=== PATIENT | male | born 1990 | race Caucasian/White ===

== ENCOUNTER 2017-02-26 00:39 | Emergency (ER) | payer BC ==
[~2017-02-26] VITALS: Ht 170.2 cm; Wt 96.5 kg
[~2017-02-26 00:39] MED LIST: ALBU8.5H3 INH; BEN25 PO; CEPH-443 PO; CETI10CA PO; GUAI118L94 PO; IBUP-1542 PO; IBUP800T25 PO
[2017-02-26 00:42] VITALS: Ht 170.2 cm; Wt 96.5 kg
[2017-02-26] MEDS ORDERED: ALBUTEROL 0.083% (NEB) 2.5 MG/3 ML AMP NEB STA (03:24)
[2017-02-26] MEDS ORDERED: DEXAMETHASONE 10 MG/ML 1 ML INJ IM STA (03:24)
[2017-02-26] MEDS ORDERED: IPRATROPIUM (NEB) 0.5 MG/2.5 ML AMP NEB STA (03:24)
--- NOTE | 2017-02-26 04:33 | ERD ---
ER Documentation Chief Complaint Date/Time DATE: 02/26/17 TIME: 04:27 Chief Complaint cough w/wheezing, hx asthma HPI This 26-year-old male patient presents to emergency department for exacerbation of asthma. States he has asthma and is been out of his albuterol inhaler for 3 months. Patient denies any use of maintenance medication. Denies any known trigger other than the heat during the day. Patient denies shortness of breath , chest pain, dizziness, or palpitations. ROS All systems reviewed and are negative except as per history of present illness. Medications Home Meds Active Scripts Cephalexin* (Keflex*) 500 Mg Capsule, 500 MG PO QID for 10 Days, CAP Prov:NICKY DIAZ NP 02/05/16 Diphenhydramine Hcl* (Benadryl*) 25 Mg Cap, 25 MG PO Q6 Y for ITCHING/RASH, #30 TAB Prov:NICKY DIAZ NP 02/05/16 Ibuprofen* (Motrin*) 600 Mg Tab, 600 MG PO Q6H Y for PAIN AND OR ELEVATED TEMP, #30 TAB Prov:NICKY DIAZ NP 02/05/16 Ibuprofen* (Motrin*) 600 Mg Tab, 600 MG PO Q8, #30 TAB 0 Refills Prov:MARY LOU VALENTINO PA-C 11/05/15 Cetirizine Hcl* (Zyrtec*) 10 Mg Capsule, 10 MG PO DAILY, #30 TAB.CHEW Prov:NICKY DIAZ NP 07/23/15 Albuterol Sulfate* (Proair HFA*) 8.5 Gm Hfa.aer.ad, 2 PUFF INH Q4H Y for WHEEZING AND SOB, #1 INHALER Prov:NICKY DIAZ NP 07/23/15 Ibuprofen* (Motrin*) 600 Mg Tab, 600 MG PO Q6H Y for PAIN AND OR ELEVATED TEMP, #30 TAB Prov:NICKY DIAZ NP 07/23/15 Guaifenesin-Codeine Phosphate* (Guaifenesin* with Codeine Liq) 120 Ml Liquid, 5 ML PO Q4H for COUGH, #60 ML Prov:NICKY DIAZ NP 07/23/15 Ibuprofen* (Motrin*) 800 Mg Tab, 800 MG PO Q6H Y for PAIN AND OR ELEVATED TEMP, #30 TAB Prov:ANDRÉS TAMEZ Casandra RADIOLOGY TRANSPORTER 02/28/15 Allergies Allergies: Coded Allergies: No Known Allergy (Unverified , 08/02/14) PMhx/Soc Medical and Surgical Hx: pt denies Surgical Hx History of Surgery: Yes (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) Anesthesia Reaction: No Hx Neurological Disorder: No Hx Respiratory Disorders: Yes (asthma) Hx Cardiac Disorders: No Hx Psychiatric Problems: No Hx Miscellaneous Medical Probl: No Hx Alcohol Use: Yes (socially) Hx Substance Use: Yes (quit marijuana) Hx Tobacco Use: No Smoking Status: Never smoker Physical Exam Vitals Vital Signs Date Time Temp Pulse Resp B/P Pulse Ox O2 Delivery O2 Flow Rate FiO2 02/26/17 03:45 66 24 96 21 02/26/17 00:42 98.2 68 20 144/83 98 Vitals stable, triage notes reviewed Physical Exam Const: Well-nourished well-appearing well-hydrated no acute distress Head: Eyes: ENT: Normal External Ears, Nose and Mouth. Neck: Resp: Respirations even and unlabored, expiratory wheeze diminished bases no rhonchi Cardio: Abd: Skin: Back: Ext: Neur: Awake and alert Psych: Normal Mood and Affect Results 24 hrs Current Medications Medications (Trade) Dose Ordered Sig/Padmaja Route PRN Reason Start Time Stop Time Status Last Admin Dose Admin Albuterol (Proventil 0.083% (Neb)) 5 mg ONCE STAT NEB 02/26/17 03:24 02/26/17 03:28 DC 02/26/17 03:48 Ipratropium [place] (Atrovent 0.02% (Neb)) 0.5 mg ONCE STAT NEB 02/26/17 03:24 02/26/17 03:28 DC 02/26/17 03:47 Dexamethasone (Decadron) 5 mg ONCE STAT IM 02/26/17 03:24 02/26/17 03:28 DC Procedures/MDM This 26-year-old male patient presents to emergency department for exacerbation of asthma. I have little suspicion of pneumonia, bronchitis, or upper respiratory infection. Emergency room course includes 5 mg of intramuscular Decadron, and hand-held nebulized albuterol and Atrovent patient reassessed after interventions with improvement of wheezing patient reports improved work of breathing. Plan to discharge patient home with albuterol MDI 2 puffs every 4 hours as needed no refills will be provided patient must follow-up with primary care physician for full evaluation of asthma including pulmonary function tests. Patient is stable with no new complaints during ER course, clinically there is no current evidence to suggest any other emergent condition appearing to require further evaluation or hospitalization. I feel the patient is stable for discharge at this time. I have discussed results, examination findings, the treatment plan with the patient and family present prior to discharge. Indications for emergent reevaluation, side effects of medication were also discussed. All questions were answered. Patient verbalizes understanding and agrees with plan of care. Departure Diagnosis: Primary Impression: Asthma exacerbation Condition: Good Patient Instructions: [facility] Additional Instructions: Thank you for for coming to [facility] for your care today. Please ask your nurse or provider if you have questions about your care today and do not leave until all your questions have been answered. Please use any medications given as directed and follow-up with your doctor (or the doctor you were referred to) in the next 2-3 days. If you do not have a primary care doctor you may follow up at the [facility] (listed below). You may also use motrin and tylenol as needed for fever and/or pain unless instructed otherwise by your provider or nurse. Indications for more urgent follow-up have been discussed, but you may return to the Emergency Department at ANY time for any worrisome or worsening symptoms. If you have abdominal pain, please know that no test or exam you received is perfect and you should follow up within 8 hours for continued pain. If you had any imaging studies today, such as an X-Ray or CT Scan, these studies will be reviewed later by a radiologist. You will be called if there are important findings that were not identified today, so make sure the contact information you provided at registration is correct. If you received any narcotic pain control medicine today, such as Vicodin, Morphine or Dilaudid, your coordination and judgment may be affected for a number of hours. Please do not drive or operate heavy machinery, and you may want someone to assist you at home. If you were given a prescription for narcotic medication, be aware that it is very addictive- use sparingly and only if necessary. DULCE QUICK Feb 26, 2017 04:33
[2017-02-26] MEDS ORDERED: ALBU8.5H3 INH (04:34)
[2017-02-26 05:09] VITALS: BP 127/67; PULSE 77; RESP 16; TEMP 98.6
== END 2017-02-26 05:09 | disposition home or self-care (01) ==
LOC: FTE 00:39
DX: J45.901 Unspecified asthma with (acute) exacerbation (principal)
CPT/HCPCS: 94664; 96372; J1100; Z7502; Z7610

== ENCOUNTER 2018-05-19 09:02 | Emergency (ER) | END 2018-05-19 10:58 | disposition home or self-care (01) ==

== ENCOUNTER → 2018-09-08 | Emergency (ER) | payer BC ==
[~2018-09-08] VITALS: Ht 172.7 cm; Wt 87.6 kg
[~2018-09-08] MED LIST changes: +ACET325T33 PO; -ALBU8.5H3 INH; +ALBU8.5H8 INH; -IBUP800T25 PO; +IBUP800T48 PO; +RANI150T35 PO
[2018-09-08 00:50] VITALS: Ht 172.7 cm; Wt 87.6 kg
--- NOTE | 2018-09-08 04:18 | ERD ---
ER Documentation Chief Complaint Chief Complaint epigastric pain x 1 day HPI 28-year-old male, previously healthy, presents to the emergency department, complaining of epigastric pain for 1 day. The pain is sharp, burning, 5/10, he has been drinking a lot of energy drinks and is concerned about his heart. He denies palpitations, no dizziness, no shortness of breath, no family history of coronary artery disease. ROS All systems reviewed and are negative except as per history of present illness. Medications Home Meds Active Scripts Acetaminophen* (Tylenol*) 325 Mg Tablet, 2 TAB PO Q8 PRN for PAIN AND OR ELEVATED TEMP, #20 TAB Prov:JUAN MIGUEL ODONNELL MD 09/08/18 Ranitidine Hcl* (Zantac*) 150 Mg Tablet, 150 MG PO BID PRN for EPIGASTRIC PAIN, #14 TAB Prov:JUAN MIGUEL ODONNELL MD 09/08/18 Cetirizine Hcl* (Zyrtec*) 10 Mg Capsule, 10 MG PO DAILY, #30 TAB.CHEW Prov:RADHA MCNAMARA PA-C 05/19/18 Albuterol Sulfate* (Proair HFA*) 8.5 Gm Hfa.aer.ad, 2 PUFF INH Q4H PRN for WHEEZING AND SOB, #1 INHALER Prov:RADHA MCNAMARA PA-C 05/19/18 Albuterol Sulfate* (Proair HFA*) 8.5 Gm Hfa.aer.ad, 2 PUFF INH Q4, #1 INHALER Prov:DULCE QUICK 02/26/17 Cephalexin* (Keflex*) 500 Mg Capsule, 500 MG PO QID for 10 Days, CAP Prov:NICKY DIAZ NP 02/05/16 Diphenhydramine Hcl* (Benadryl*) 25 Mg Cap, 25 MG PO Q6 PRN for ITCHING/RASH, #30 TAB Prov:NICKY DIAZ NP 02/05/16 Ibuprofen* (Motrin*) 600 Mg Tab, 600 MG PO Q6H PRN for PAIN AND OR ELEVATED TEMP, #30 TAB Prov:NICKY DIAZ NP 02/05/16 Ibuprofen* (Motrin*) 600 Mg Tab, 600 MG PO Q8, #30 TAB 0 Refills Prov:MARY LOU VALENTINO PA-C 11/05/15 Cetirizine Hcl* (Zyrtec*) 10 Mg Capsule, 10 MG PO DAILY, #30 TAB.CHEW Prov:NICKY DIAZ WARDROBE MANAGER 07/23/15 Albuterol Sulfate* (Proair HFA*) 8.5 Gm Hfa.aer.ad, 2 PUFF INH Q4H PRN for WHEEZING AND SOB, #1 INHALER Prov:NICKY DIAZ WARDROBE MANAGER 07/23/15 Ibuprofen* (Motrin*) 600 Mg Tab, 600 MG PO Q6H PRN for PAIN AND OR ELEVATED TEMP, #30 TAB Prov:NICKY DIAZ WARDROBE MANAGER 07/23/15 Guaifenesin-Codeine Phosphate* (Guaifenesin* with Codeine Liq) 120 Ml Liquid, 5 ML PO Q4H for COUGH, #60 ML Prov:NICKY DIAZ NP 07/23/15 Ibuprofen* (Motrin*) 800 Mg Tab, 800 MG PO Q6H PRN for PAIN AND OR ELEVATED TEMP, #30 TAB Prov:ANDRÉS TAMEZ NP 02/28/15 Allergies Allergies: Coded Allergies: No Known Allergy (Unverified , 05/19/18) PMhx/Soc History of Surgery: Yes (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) Anesthesia Reaction: No Hx Neurological Disorder: No Hx Respiratory Disorders: Yes (asthma) Hx Cardiac Disorders: No Hx Psychiatric Problems: No Hx Miscellaneous Medical Probl: No Hx Alcohol Use: Yes (socially) Hx Substance Use: Yes (quit marijuana) Hx Tobacco Use: No Smoking Status: Never smoker FmHx Family History: No diabetes, No coronary disease Physical Exam Vitals Vital Signs Date Temp Pulse Resp B/P (MAP) Pulse Ox O2 O2 Flow FiO2 Time Delivery Rate 09/08/18 97.7 62 18 126/94 99 Room Air 06:07 (105) 09/08/18 97.5 58 16 128/71 98 00:50 (90) Physical Exam Const: No acute distress Head: Atraumatic Eyes: Normal Conjunctiva ENT: Normal External Ears, Nose and Mouth. Neck: Full range of motion. No meningismus. Resp: Clear to auscultation bilaterally Cardio: Regular rate and rhythm, no murmurs Abd: Soft, non tender, non distended. Normal bowel sounds Skin: No petechiae or rashes Back: No midline or flank tenderness Ext: No cyanosis, or edema Neur: Awake and alert Psych: Normal Mood and Affect Results 24 hrs Patient: CHLOE BARRETT : 1990 Age: 28 Sex: M MR #: [id number] DOS: 09/08/18 0428 Ordering MD: JUAN MIGUEL ODONNELL MD Location: [facility] Room/Bed: PROCEDURE: XR Chest. CLINICAL INDICATION: Chest pain TECHNIQUE: Frontal and Lateral views of the chest were obtained. COMPARISON: None. FINDINGS: The lungs are free of focal infiltrate. No pleural effusion or significant edema is seen. The cardiomediastinal silhouette appears within normal limits. Osseous structures are intact. Slight anterior loss of height is seen involving the approximate T12 and L1 levels, presumably chronic. IMPRESSION: No evidence for active cardiopulmonary disease. Procedures/MDM Vital signs stable. Differential diagnosis include but not limited to: URI, PNA, chostochondritis, GERD, musculoskeletal injury, less likely PE, pericarditis, endocarditis. Pertinent Data: 12 Lead ECG: Sinus rhythm, no ST changes, normal T wave, normal intervals Radiology: Chest x-rays: Normal Physical examination and clinical presentation consistent most likely with GERD. During the ED course the patient remained stable, no new complaints. Results and clinical impression discussed with patient who agrees with management. The patient is stable to be treated outpatient and will be discharged home with a Rx for ibuprofen; some side effects of prescribed medications (headache, rash, nausea, vomiting, diarrhea, drowsiness, habituation, bleeding, hypertension, interactions with other medications) were reviewed. The patient was instructed to follow up with the primary care provider in the next 48h. If symptoms persist, worsen or new symptoms develop, then patient should return to the ED immediately. Instructions explained and given directly by me to the patient with acknowledgment and demonstrated understanding. Disclaimer: Inadvertent spelling and grammatical errors are likely due to EHR/dictation software use and do not reflect on the overall quality of patient care. Also, please note that the electronic time recorded on this note does not necessarily reflect the actual time of the patient encounter. Departure Diagnosis: Primary Impression: Gastroesophageal reflux Condition: Stable Additional Instructions: Thank you very much for allowing us to participate in your care. Your health and safety is our top priority at [facility]. Call your primary care doctor TOMORROW for an appointment during the next 2-4 days and bring all the information and medications prescribed. Have prescriptions filled and follow precisely the directions on the label. If the symptoms get worse and your provider is unavailable, return to the Emergency Department immediately. JUAN MIGUEL ODONNELL MD Sep 08, 2018 04:18
[2018-09-08 06:07] VITALS: BP 126/94; PULSE 62; RESP 18
== END | disposition home or self-care (01) ==
LOC: FTE 00:31
DX: K21.9 Gastro-esophageal reflux disease without esophagitis (principal); J45.909 Unspecified asthma, uncomplicated
CPT/HCPCS: 71046; 93005